=== PATIENT | female | born 1995 | race Caucasian/White ===

== ENCOUNTER 2018-03-16 12:20 | Inpatient (IN) | payer BC ==
[2018-03-16] MEDS ORDERED: VANCOMYCIN 2,000 MG in DEXTROSE 5%-WATER - 500 ML IVPB STA (13:11)
[2018-03-16 13:15] LABS: BASO % 0.1 % (0-2.0); EOS % 0.4 % (0-4.5); HEMATOCRIT 35.5 % (32.4-45.2); HEMOGLOBIN 12.1 GM/dL (10.7-15.3); LYMPH % 15.3 % (8-40); MCH 27.7 pg (25.7-33.7); MCHC 34.1 g/dl (32.0-36.0); MEAN CELL VOLUME 81.3 fl (80-96); MEAN PLT VOLUME 7.7 fl (7.5-11.1); MONO % 6.8 % (3.8-10.2); NEUT % 77.4 % (42.8-82.8); PLATELET COUNT 258 K/MM3 (134-434); RBC 4.37 M/mm3 (3.60-5.2); RDW 14.9 % (11.6-15.6); WHITE BLOOD COUNT 9.4 K/mm3 (4.0-10.0)
[2018-03-16] MEDS ORDERED: VANCOMYCIN 1,000 MG in DEXTROSE 5%-WATER - 250 ML IVPB SCH (13:16)
[2018-03-16 13:28] LABS: INR 0.97 (0.83-1.09); PROTHROMBIN TIME (PATIENT) 11.5 SEC (9.7-13.0)
[2018-03-16 13:30] LABS: ACTIVATED PTT 25.7 SECONDS (25.2-36.5)
[2018-03-16] MEDS ORDERED: DEXTROSE 5%-LACTATED RINGERS 1,000 ML IV SCH (13:30)
[2018-03-16 13:44] VITALS: BMI 28.0
[2018-03-16 14:08] LABS: ANION GAP 9 MMOL/L (8-16); BLOOD UREA NITROGEN 7 mg/dL (7-18); CALCIUM 8.9 mg/dL (8.5-10.1); CHLORIDE 104 mmol/L (98-107); CO2 23 mmol/L (21-32); CREATININE 0.4 mg/dL (0.55-1.3); GLUCOSE,RANDOM 77 mg/dL (74-106); POTASSIUM 4.2 mmol/L (3.5-5.1); SODIUM 137 mmol/L (136-145)
[2018-03-16 14:25] LABS: RPR NONREACTIVE (NONREACTIVE)
[2018-03-16] MEDS ORDERED: OXYTOCIN 30 UNITS in 0.9% NS 30 UNIT/500 ML INFUS.BAG IVPB ONE (17:42)
--- NOTE | 2018-03-16 18:02 | HP ---
Past Medical History - Admission History of Present Illness: 22 yo @ 39 2/7 wks by first trimester ultrasound, EDC 03/21/2018 complicated by: 1. GBS positive, PCN allergy, clinda resistant Patient reports with chief complaint of leakage of fluid and contractions at 1030. She presented grossly ruptured. She denies vaginal bleeding, reports movement. History Source: Patient Limitations to Obtaining History: No Limitations - Past Medical History Cardiovascular: No: HTN Pulmonary: No: Asthma Gastrointestinal: No: GERD ...: 1 ...Para: 0 ...LMP: 06/18/17 ... Weeks Gestation by Dates: 38.5 ...EDC by Dates: 03/25/18 ...EDC by Sono: 03/21/18 Heme/Onc: No: Anemia - Past Surgical History Past Surgical History: Yes: None Hx Myomectomy: No Hx Transabdominal Cerclage: No - Smoking History Smoking history: Never smoked Have you smoked in the past 12 months: No - Alcohol/Substance Use Hx Alcohol Use: No History of Substance Use: reports: None - Social History Usual Living Arrangement: Yes: With Parent History of Recent Travel: No Home Medications - Allergies Allergies/Adverse Reactions: Allergies Allergy/AdvReac Type Severity Reaction Status Date / Time No Known Allergies Allergy Verified 01/23/14 18:49 - Home Medications Home Medications: Ambulatory Orders Dha 1 tab PO DAILY 03/16/18 Family Disease History - Family Disease History Family History: Denies Review of Systems - Review of Systems Constitutional: reports: No Symptoms Cardiovascular: reports: No Symptoms Respiratory: reports: No Symptoms Gastrointestinal: reports: No Symptoms Genitourinary: reports: No Symptoms Musculoskeletal: reports: No Symptoms Neurological: reports: No Symptoms Psychiatric: reports: No Symptoms Physical Exam - Maternity Vital Signs: Vital Signs Temperature 99.2 F 03/16/18 17:00 Pulse Rate 95 H 03/16/18 17:00 Respiratory Rate 20 03/16/18 17:00 Blood Pressure 133/71 03/16/18 17:00 O2 Sat by Pulse Oximetry (%) Constitutional: Yes: Well Nourished, No Distress, Calm Cardiovascular: Yes: Regular Rate and Rhythm Lungs: Clear to auscultation - Abdominal Exam/OB Fundal Height: 40 Number of Fetuses: Single Presentation: Vertex Contractions: Yes Regularity: Irregular Intensity: Moderate Monitor Mode: External Category: I Accelerations: Non-Uniform Decelerations: None - Vaginal Exam/OB Vaginal Bleediing: No Dilatation (cm): 3 Effacement (%): 80 Amniotic Membrane Status: Ruptured Station: -2 - Physical Exam Edema: No Psychiatric: Yes: Alert, Oriented - Labs Lab Results: CBC, BMP 03/16/18 12:50 03/16/18 12:50 PNL O positive, antibody negative; RPR NR; HIV neg; HBS Ag neg; HCV neg; Rubella immune; Varicella immune; Parvo immune; GCT WNL; GBS positive Hemorrhage Risk Assessment - Risk Factors Medium Risk Factors: Yes: None High Risk Factors: Yes: None Risk Score: 1 Risk Level: Medium Risk Assessment/Plan 22 yo @ 39 + wks, SROM early labor 1. Admit to L&D 2. Consents reviewed and signed, routine labs reviewed 3. GBS positive - Clinda resistant; PCN allergy --> Will start Vanco 2 g then 1 g Q hour 4. Inadequate cervical change, plan to start pitocin Reviewed risks of pitocin augmentation including heart rate changes, delivery She expressed understanding 5. Will offer pain medication upon request 6. Will proceed with expectant management
[2018-03-16] MEDS ORDERED: PROMETHAZINE HCL 25 MG/1 ML VIAL IVPUSH ONE (18:03)
[2018-03-16] MEDS ORDERED: BUTORPHANOL TARTRATE 1 MG/ML VIAL IVPB ONE (18:03)
[2018-03-16] MEDS ORDERED: OXYTOCIN 30 UNITS in 0.9% NS 30 UNIT/500 ML INFUS.BAG IVPB SCH (18:15)
[2018-03-16] MEDS ORDERED: ELECTROLYTE-148 SOLN 500 ML IV ONE (23:30)
[2018-03-16] MEDS ORDERED: FENTANYL/BUPIVACAINE/NS/PF - PCEA - 50 ML DISP.SYRIN EP ONE (23:32)
[2018-03-16] MEDS ORDERED: NALOXONE HCL 0.4 MG/ML VIAL IVPUSH PRN (23:39)
[2018-03-16] MEDS ORDERED: BUPIVACAINE HCL/PF 0.25% (2.5MG/ML) 10 ML VIAL ONE (23:43)
[2018-03-16] MEDS ORDERED: FENTANYL/BUPIVACAINE/NS/PF - PCEA - 50 ML DISP.SYRIN EP SCH (23:45)
[2018-03-17] MEDS ORDERED: VANCOMYCIN 1,000 MG in DEXTROSE 5%-WATER - 250 ML IVPB SCH (01:00)
--- NOTE | 2018-03-17 01:43 | PN ---
Ante-Partal Exam - Subjective Subjective: Patient comfortable s/p epidural Vital Signs: Vital Signs Temperature 98.9 F 03/17/18 01:00 Pulse Rate 99 H 03/17/18 00:45 Respiratory Rate 20 03/17/18 00:45 Blood Pressure 123/56 L 03/17/18 00:45 O2 Sat by Pulse Oximetry (%) 97 03/17/18 00:45 Bleeding: Yes (bloody show) Headache: No Visual changes: No Right upper quadrant pain: No - Contractions Contractions: Yes Regularity: Regular Intensity: Unaware Monitor Mode: External - Exam during Labor Heart Rate: 155 Variability: Moderate Category: I Monitor Accelerations: Present Monitor Decelerations: None Exam: Vaginal Dilatation (cm): 8 Effacement (%): 90 Amniotic Membrane Status: Ruptured Presentation: Vertex Station: -2 - Intrapartum Hemorrhage Risk Medium Risk Factors: None High Risk Factors: None Risk Score: 0 Risk Level: Low Risk - Assessment/Plan Assessment/Plan: 22 yo 39+ wks active labor 1. Good cervical change 2. Pain well controlled with epidural 3. GBs positive, on vancomycin 4. Will proceed with expectant management
[2018-03-17] MEDS ORDERED: FENTANYL/BUPIVACAINE/NS/PF - PCEA - 50 ML DISP.SYRIN EP ONE (04:35)
[2018-03-17] MEDS ORDERED: OXYTOCIN 20 UNITS in 0.9% NS 20 UNIT/1,000 ML INFUS.BAG IV ONE (05:23)
[2018-03-17] MEDS ORDERED: BENZOCAINE 20% 57 GM BOTTLE TP PRN (06:17)
[2018-03-17] MEDS ORDERED: BISACODYL 10 MG SUPP.RECT RC PRN (06:17)
[2018-03-17] MEDS ORDERED: METHYLERGONOVINE MALEATE 0.2 MG/1 ML AMP IM PRN (06:17)
[2018-03-17] MEDS ORDERED: BENZOCAINE 28 GM HEMORRHOIDAL OINTMENT TP PRN (06:17)
[2018-03-17] MEDS ORDERED: WITCH HAZEL 50% (TUCKS) 40 PAD/JAR PAD TP PRN (06:17)
--- NOTE | 2018-03-17 06:21 | PN ---
Delivery - Delivery Vaginal Delivery: No Problems Type of Anesthesia: Epidural Episiotomy/Laceration: None EBL (cc): 300 Delivery, Single - Stages of Labor Date 1st Stage Initiatied: 03/16/18 Time 1st Stage Initiated: 10:00 Date 2nd Stage Initiated: 03/17/18 Time 2nd Stage Initiated: 05:30 Date of Delivery: 03/17/18 Time of Delivery: 06:02 Date Placenta Delivered: 03/17/18 Time Placenta Delivered: 06:08 Placenta: Yes: Spontaneous - Condition of Infant Gender: Male Position: Left, OA Total Hours ROM (Hrs/Mins): 20 hours 8 minutes - 1 Minute Total Score: 9 5 Minutes Total Score: 9 - [place] Feeding Plan Initial Plan: Elected not to breastfeed exclusively throughout hospitalization Remarks - Remarks Remarks: Patient progressed to fully dilated and at 0602 via delivered a viable male in WANDA position, APGARs 9,9. Weight and length unknown at this time. Head delivered spontaneously followed by shoulders and body without difficulty. with spontaneous cry and placed on mother's abdomen. Nose and mouth was bulb suctioned. Cord was clamped and cut. Perineum and vagina examined, no lacerations noted. Placenta was delivered spontaneously and intact. 20 units of pitocin in 1 L IVF was given. All counts correct x 2. Mother and infant stable in LDR. EBL 300cc.
[2018-03-17] MEDS ORDERED: OXYTOCIN 20 UNITS in 0.9% NS 20 UNIT/1,000 ML INFUS.BAG IV SCH (06:30)
[2018-03-17] MEDS: VANCOMYCIN 1 GRAM (PRE-DOCKED) 1,000 MG/250 ML BAG IVPB SCH (07:34)
[2018-03-17] MEDS ORDERED: ACETAMINOPHEN 325 MG TABLET (FP) ONE (07:58)
[2018-03-17] MEDS ORDERED: IBUPROFEN 600 MG TABLET (FP) PO ONE (07:58)
[2018-03-17] MEDS: IBUPROFEN 600 MG TABLET (FP) PO PRN ×3 (08:00→22:05)
[2018-03-17] MEDS: ACETAMINOPHEN 325 MG TABLET (FP) PO PRN ×3 (08:00→22:06)
[2018-03-17] MEDS: FERROUS SO4 325 MG TABLET (FP) PO SCH ×3 (08:47→16:54)
[2018-03-17] MEDS ORDERED: TUBERCULIN PPD 5 TU/0.1ML SYRINGE (IN PATIENT USE ONLY) ID ONE (10:00)
[2018-03-17] MEDS: PRENATAL VITAMINS W/ FOLIC ACID TABLET (FP) PO SCH (11:08)
[2018-03-17] MEDS ORDERED: ELECTROLYTE-148 SOLN 500 ML IV ONE (16:45)
[2018-03-18] MEDS: FERROUS SO4 325 MG TABLET (FP) PO SCH ×3 (08:04→17:22)
--- NOTE | 2018-03-18 08:26 | PN ---
Progress Note (short form) - Note Progress Note: ppd 1 doing well, no c/o , voids ok CBC, BMP 03/16/18 12:50 Last Vital Signs Temp Pulse Resp BP Pulse Ox 98.2 F 88 20 110/64 97 03/18/18 01:12 03/18/18 01:12 03/18/18 01:12 03/18/18 01:12 03/17/18 07:15 abdomen soft, uterus firm, non tender lochia mild no calf tenderness plan ambulate, cbc plan for d/s home in am
[2018-03-18 08:29] LABS: BASO % 0.3 % (0-2.0); EOS % 0.6 % (0-4.5); HEMATOCRIT 29.7 % (32.4-45.2); HEMOGLOBIN 9.5 GM/dL (10.7-15.3); LYMPH % 21.6 % (8-40); MCH 26.6 pg (25.7-33.7); MCHC 32.1 g/dl (32.0-36.0); MEAN PLT VOLUME 7.7 fl (7.5-11.1); MONO % 6.1 % (3.8-10.2); NEUT % 71.4 % (42.8-82.8); PLATELET COUNT 186 K/MM3 (134-434); RBC 3.58 M/mm3 (3.60-5.2); RDW 15.3 % (11.6-15.6); WHITE BLOOD COUNT 10.4 K/mm3 (4.0-10.0)
[2018-03-18] MEDS: PRENATAL VITAMINS W/ FOLIC ACID TABLET (FP) PO SCH (09:25)
[2018-03-18] MEDS: ACETAMINOPHEN 325 MG TABLET (FP) PO PRN (16:45)
[2018-03-18] MEDS: IBUPROFEN 600 MG TABLET (FP) PO PRN (16:46)
[2018-03-18] MEDS ORDERED: SENNOSIDES/DOCUSATE COMBO (SENNA PLUS) TABLET (UD) PO PRN (22:00)
--- NOTE | 2018-03-19 06:37 | PN ---
Post Progress Note - Subjective Subjective: Patient without acute complaints. Reports tolerating oral intake without nausea or vomiting. Ambulating without dizziness. Denies fevers or chills. Pain well controlled with oral pain medication. without difficulty. Passing flatus. Post Day: 2 Type of Delivery: Vital Signs: Vital Signs Temperature 98.2 F 03/18/18 21:48 Pulse Rate 93 H 03/18/18 21:48 Respiratory Rate 18 03/18/18 21:48 Blood Pressure 125/69 03/18/18 21:48 O2 Sat by Pulse Oximetry (%) 97 03/17/18 07:15 Breast Exam: Yes: Soft Uterus: Yes: Fundus Firm, Fundus below umbilicus Abdomen/GI: Yes: Abdomen soft, Passing flatus, Tolerating PO. No: Abdominal Distention, Tender Lochia: Yes: Serosa Lochia, amount: Small Extremities: Yes: Calves non-tender. No: Edema Activity: Ambulating - Labs Labs: CBC WBC 10.4 K/mm3 (4.0-10.0) H 03/18/18 07:25 RBC 3.58 M/mm3 (3.60-5.2) L 03/18/18 07:25 Hgb 9.5 GM/dL (10.7-15.3) L 03/18/18 07:25 Hct 29.7 % (32.4-45.2) L D 03/18/18 07:25 MCV 83.0 fl (80-96) 03/18/18 07:25 MCH 26.6 pg (25.7-33.7) 03/18/18 07:25 MCHC 32.1 g/dl (32.0-36.0) 03/18/18 07:25 RDW 15.3 % (11.6-15.6) 03/18/18 07:25 Plt Count 186 K/MM3 (134-434) D 03/18/18 07:25 MPV 7.7 fl (7.5-11.1) 03/18/18 07:25 Absolute Neuts (auto) 7.4 K/mm3 (1.5-8.0) 03/18/18 07:25 Neutrophils % 71.4 % (42.8-82.8) 03/18/18 07:25 Lymphocytes % 21.6 % (8-40) D 03/18/18 07:25 Monocytes % 6.1 % (3.8-10.2) 03/18/18 07:25 Eosinophils % 0.6 % (0-4.5) 03/18/18 07:25 Basophils % 0.3 % (0-2.0) 03/18/18 07:25 Nucleated RBC % 0 % (0-0) 03/18/18 07:25 Assessment/Plan 22 yo PPD # 2 s/p , afebrile, vital signs stable, stable for discharge home 1. Patient stable for discharge home today. 2. Patient encouraged to contact MD for: - Severe pain not controlled by oral pain medication - Fevers or chills - Nausea or vomiting, intolerance of oral intake 3. Patient to follow up in office in 4-6 weeks for visit
--- NOTE | 2018-03-19 06:38 | DS ---
Physical Exam-SEARCH ENGINE OPTIMIZATION MANAGER Vital Signs: Vital Signs Temperature 98.2 F 03/18/18 21:48 Pulse Rate 93 H 03/18/18 21:48 Respiratory Rate 18 03/18/18 21:48 Blood Pressure 125/69 03/18/18 21:48 O2 Sat by Pulse Oximetry (%) 97 03/17/18 07:15 Labs: CBC, BMP 03/18/18 07:25 03/16/18 12:50 Delivery - Delivery Vaginal Delivery: No Problems Type of Anesthesia: Epidural Episiotomy/Laceration: None EBL (cc): 300 Delivery, Single - Stages of Labor Date 1st Stage Initiatied: 03/16/18 Time 1st Stage Initiated: 10:00 Date 2nd Stage Initiated: 03/17/18 Time 2nd Stage Initiated: 05:30 Date of Delivery: 03/17/18 Time of Delivery: 06:02 Time Placenta Delivered: 06:08 Placenta: Yes: Spontaneous - Condition of Fruit Farmworker/Engineering Officer Present: No Infant Gender: Male Weight: 7 lb 2 oz Position: Left, OA Total Hours ROM (Hrs/Mins): 20 hours 8 minutes - 1 Minute Total Score: 9 5 Minutes Total Score: 9 - Feeding Plan Initial Plan: Elected not to breastfeed exclusively throughout hospitalization Discharge Summary Reason For Visit: LABOR ADMISSION Procedures: Principal: Vaginal delivery Hospital Course: Patient was admitted s/p SROM and in early labor She required pitocin for augmentation of labor She progressed to deliver via uncomplicated PPD # 1 patient ambulated, voiding, passing gas, tolerating oral intake and with adequate pain control. She fulfilled all criteria for discharge PPD #2 Condition: Good - Instructions Disposition: HOME - Home Medications Comprehensive Discharge Medication List: Ambulatory Orders Dha 1 tab PO DAILY 03/16/18
[2018-03-19 08:37] VITALS: BP 114/72; PULSE 88; TEMP 98.7
[2018-03-19] MEDS: PRENATAL VITAMINS W/ FOLIC ACID TABLET (FP) PO SCH (09:38)
[2018-03-19] MEDS: FERROUS SO4 325 MG TABLET (FP) PO SCH ×2 (09:39→12:43)
== END 2018-03-19 14:06 | disposition home or self-care (01) | DRG 807 ==
LOC: JLDR 12:20 → J3W 03-17 08:29
PROVIDERS: ADMIT Obstetrics & Gynecology; ATTEND Obstetrics & Gynecology
PROC: 10E0XZZ Delivery of Products of Conception, External Approach (ICD-10-PCS; principal; 2018-03-17)
DX: O99.824 Streptococcus B carrier state complicating childbirth (principal); Z37.0 Single live birth; Z3A.38 38 weeks gestation of pregnancy; Z88.0 Allergy status to penicillin
CPT/HCPCS: 36415; 59409; 80048; 85025; 85610; 85730; 86593; 86850; 86900; 86901; 87389